=== PATIENT | female | born 1975 | race African-American/Black ===

== ENCOUNTER 2016-10-12 06:25 | Emergency (ER) | payer MEDICAID ==
[~2016-10-12] VITALS: Ht 170.2 cm; Wt 200.0 kg
[2016-10-12] MEDS ORDERED: VISCOUS LIDOCAINE 2% 15 ML UDC MM PRN (08:15)
[2016-10-12] MEDS ORDERED: IBUPROFEN 800MG TABLET PO ONE (08:15)
[2016-10-12] MEDS ORDERED: ACETAMINOPHEN 500MG TABLET PO ONE (08:15)
[2016-10-12] MEDS ORDERED: PENICILLIN G BENZATHINE 1,200,000 UNITS/2ML SYR IM ONE (08:15)
[2016-10-12 08:57] VITALS: BP 151/81
== END 2016-10-12 09:20 | disposition home or self-care (01) ==
LOC: ER 06:25
DX: J02.9 Acute pharyngitis, unspecified (principal)
CPT/HCPCS: 96372; 99283; J0561; Z7610